=== PATIENT | female | born 1980 | race Caucasian/White ===

== ENCOUNTER 2016-10-23 07:56 | Inpatient (IN) | payer OTHER ==
--- NOTE | ~2016-10-23 | OP ---
Record Of Operation [facility] [address] [facility] [place] [address] NAME: IFRAH YEBOAH : 76 STATUS : DIS IN PAT#: [id number] AGE: 36 ADM/REG DATE : 10/23/16 MR#: [id number] REPORT SERV DATE: 10/26/16 DICTATED BY: HARDIK CONCEPCION II DATE: 10/26/16 REPORT STATUS : Draft TRANSCRIBED BY: MODL DATE: 10/26/16 DATE OF PROCEDURE: 10/23/2016 PREOPERATIVE DIAGNOSES: 1. Post laminectomy instability with facet fracture, L4-5. 2. Facet instability with recurrent stenosis, L4-5. 3. L3-4 stenosis. 4. Lower extremity radiculopathy with neurogenic component consistent with L3 nerve root involvement and L4 and L5 nerve root involvement. 5. L3-4, L4-5 spondylosis with degenerative disk disease. POSTOPERATIVE DIAGNOSES: 1. Post laminectomy instability with facet fracture, L4-5. 2. Facet instability with recurrent stenosis, L4-5. 3. L3-4 stenosis. 4. Lower extremity radiculopathy with neurogenic component consistent with L3 nerve root involvement and L4 and L5 nerve root involvement. 5. L3-4, L4-5 spondylosis with degenerative disk disease. PROCEDURES: 1. Posterior revision facetectomy for decompression of the L4 and L5 nerve roots. 2. Posterior laminectomy, L3-4. 3. Interbody arthrodesis, L4-L5. 4. Application of prosthetic device, L4-L5. 5. Posterolateral arthrodesis, L3-4, L4-5. 6. Posterior segmental instrumentation, L3-4, L4-5. 7. Use of local autograft, allograft substitute, and bone morphogenic protein. 8. Use of the microscope and stereotactic spinal imaging. SURGEON: Hardik Concepcion M.D. FLUIDS: 1200 mL LR. ESTIMATED BLOOD LOSS: 100 mL. DRAINS: One drain. COMPLICATIONS: None. ANTIBIOTIC: Preoperatively. IMPLANTS: Alphatec. PREOPERATIVE HISTORY: This is a very friendly 36-year-old female, who did well following a L4-5 minimally invasive decompression in August of 2015. However, she began experiencing recurrent leg pains. Her pains are frankly consistent primarily with L4 and L5, but she has Record Of Operation [facility] [address] [place] [address] NAME: IFRAH YEBOAH : 76 STATUS : DIS IN PAT#: [id number] AGE: 36 ADM/REG DATE : 10/23/16 MR#: [id number] REPORT SERV DATE: 10/26/16 DICTATED BY: HARDIK CONCEPCION II DATE: 10/26/16 REPORT STATUS : Draft TRANSCRIBED BY: JIMMIE DATE: 10/26/16 also been complaining of some anterior thigh pain consistent with L3. She does have some degenerative changes at L3-4. When we wrote the surgical orders in the office, I debated about also including L3-4, but overall I felt that most of her symptoms were seemingly L4-5 related. However, in preop holding, she asked me again about the L3-4 level, she was very well-informed, and was aware that there were some changes there. I again advised her that I would review her MRI back in the operating room as she was being positioned. I also quizzed her and she again did describe complaints consistent with L4-L5, but again, she still had some complaints very consistent with the L3. During the positioning portion, I examined the MRI and overall felt that the L4-5 level was again most likely her symptomatic level with the facet fracture and what appeared to be the facet instability. However, I could not deny the fact there were some changes at L3-4. She fortunately does not have significant back pain, but she does have a fairly premature degenerative disk disease at L3-4 and L4-5. However, L3-4 did exhibit some degree of stenosis which I would categorize as mild-to- moderate. However, given these symptoms and overall hoping we could keep throughout the operating room for a more extended time, I felt including L3-4 was prudent. In terms of her expectations, I felt that she was a reasonable because she did not have a ton of back pain, but was mostly leg pain. We had previously discussed the risks and benefits of the surgery. We overall discussed the surgery again in the preoperative holding and the hospitalization and overall recovery. DESCRIPTION OF PROCEDURE: After informed consent was obtained, the patient was brought to the operating room at her request, and general anesthesia was achieved. She was placed in prone position. The back was prepped and draped in a sterile fashion. The stereotactic spinal pin was placed into the left iliac crest and the intraoperative CT scan was completed. The stereotactic guidance was then used throughout the case. At this point, the minimally invasive incision was performed at L3-4 and L4-5, and the minimally invasive quadrant retractor was placed. The medial to lateral blades were also used to increase visualization. The microscope was brought into place, and under microscopic visualization, the L4-5 level was examined. The CT scan intraoperatively did confirmed the facet fracture. The facet itself under the microscope, did appear to be significantly degenerative with significant facet changes and gapping. At this point, the loose facet fracture was removed. Next, the high-speed iwona was then used to take down the pars. The [id number] decompression was achieved. The dura was then well- decompressed and the L4 and L5 nerve roots were well-visualized. The stenosis centrally was also alleviated, now I was able to reach across the canal with the Kerrison rongeurs to decompress the left lateral recess. At this point, I was pleased with the decompression of the L4-5 level. This was a revision decompression of course. At this point, the interbody arthrodesis was initiated with diskectomy at L4-5. The disk was now removed with the pituitary rongeurs, Kerrison rongeurs, and the curettes. The endplates were denuded of their cartilage. The punctate bleeding bone was identified on both endplates. At this point, I irrigated the disk space. Record Of Operation [facility] [address] [facility] [place]. [address] NAME: IFRAH YEBOAH : 76 STATUS : DIS IN PAT#: [id number] AGE: 36 ADM/REG DATE : 10/23/16 MR#: [id number] REPORT SERV DATE: 10/26/16 DICTATED BY: HARDIK CONCEPCION II DATE: 10/26/16 REPORT STATUS : Draft TRANSCRIBED BY: MODL DATE: 10/26/16 Next, the prosthetic device was placed at L4-L5. We also placed local autograft and allograft substitute into the anterior disk space. Next, the L3-4 level was addressed with a more straightforward laminectomy. The spinolaminar junction was now taken down and the bilateral decompression of the canal was performed through the unilateral approach. I did not perform a complete facetectomy, but did remove approximately 75% of the facet on the right. The ligamentum flavum was removed, and overall, the dura was well-decompressed centrally. The L4 nerve roots did exhibit significant compression. I was able to remove additional ligamentum flavum and facet to more adequately to decompress the L4 nerve roots. Overall, her surface area of the transverse processes was very significant and overall I felt the posterolateral arthrodesis at this level should suffice as there was not facet instability at this level as we had identified at L4-5. At this point, the area was irrigated followed by placement of pedicle screws using stereotactic guidance. These were placed into L3, L4, and L5 on the right. On the left, percutaneous screws were placed into L3 and L5. The bone quality was excellent. The rods were then well-assembled and final tightening was performed. A repeat CT scan confirmed acceptable placement of the implants. The decortication was now performed on the right at L3, L4, and L5. The transverse processes were identified now having bleeding decorticated bone; local autograft, allograft substitute, and bone morphogenic protein were then placed along the decorticated surfaces. A deep drain was placed followed by standard closure, and the patient was then extubated and transferred to the PACU in stable condition. RAMY/JIMMIE Hardik Concepcion II, M.D. / [id number] CC: Zonia Aguilar II
[~2016-10-23 07:56] MED LIST: AFRIN15 NAS; ALEVE220 MG PO; ALIGN4 MG PO; ASAB PO; CENTRUM TAB1 TAB PO; FOLIC ACID PO; HUMIRA PEN SC; LIOR10 PO; LIPITOR40 PO; NEUR100 PO; NORCO1 TA1 PO; ORENCIA SQ; PHENTERMINE37.5 M1 PO; PREDNISONE2.5 MG PO; SAS500 PO; SEASONALE OR; ULTRAM ER100 MG PO; VIVLODEX10 MG PO; [UNRECOGNIZED DRUG - OTHER] PO
[2016-10-23 08:41] LABS: BUN (BLOOD UREA NITROGEN) 10 MG/DL (6-23); CALCIUM, SERUM 8.5 MG/DL (8.5-10.4); CHLORIDE, SERUM 105 MMOL/L (96-112); CREATININE 0.81 MG/DL (0.55-1.02); GFR AFRICAN AMERICAN 107 ML/MIN (>=60); GFR NON AFRICAN AMERICAN 92 ML/MIN (>=60); GLUCOSE, SERUM 94 MG/DL (60-99); SODIUM, SERUM 142 MMOL/L (135-148)
[2016-10-23 08:43] LABS: CO2 (CARBON DIOXIDE) 28 MMOL/L (24-34); POTASSIUM, SERUM 3.7 MMOL/L (3.5-5.3)
[2016-10-23 10:56] LABS: HEMATOCRIT 37.1 % (36.0-48.0); HEMOGLOBIN 12.6 g/dL (12.0-16.0)
[2016-10-25] MEDS ORDERED: MSCONTIN PO (08:51)
[2016-10-25] MEDS ORDERED: PCET PO (08:52)
[2016-10-25] MEDS ORDERED: V2 PO (08:53)
== END 2016-10-25 13:37 | disposition home or self-care (01) | DRG 460 ==
LOC: SDC/OF 07:56 → PACU 15:15 → 3SO 16:25
PROVIDERS: Orthopaedic Surgery
PROC: 0SG1071 Fusion of 2 or more Lumbar Vertebral Joints with Autologous Tissue Substitute, Posterior Approach, Posterior Column, Open Approach (ICD-10-PCS; principal; 2016-10-23 09:45)
PROC: 4A11X4G Monitoring of Peripheral Nervous Electrical Activity, Intraoperative, External Approach (ICD-10-PCS; 2016-10-23 09:45)
DX: M51.16 Intervertebral disc disorders with radiculopathy, lumbar region (principal); F17.210 Nicotine dependence, cigarettes, uncomplicated
CPT/HCPCS: 80048; 81001; 82962; 84703; 85014; 85018; 87641; 88304; 88311; 90732; 93005; 97161-GP; A9270-GY; C1713; C1768; C1769; G0009; J0690; J1030; J1720; J2175; J2250; J2405; J2550; J2710; J3010